=== PATIENT | female | born 1975 | race Asian ===

== ENCOUNTER 2022-05-09 15:36 | Outpatient (CLI) | payer BC | END 2022-05-09 15:37 | disposition home or self-care (01) | LOC: CSHMAMMO 15:36 | PROVIDERS: ATTEND Internal Medicine | DX: Z12.31 Encounter for screening mammogram for malignant neoplasm of breast (principal); Z80.3 Family history of malignant neoplasm of breast | CPT/HCPCS: 77063; 77067 ==

== ENCOUNTER 2024-06-29 15:41 | Outpatient (CLI) | payer BC | END 2024-06-29 15:42 | disposition home or self-care (01) | LOC: CSHULT 15:41 | PROVIDERS: ATTEND Internal Medicine | DX: R53.1 Weakness (principal) | CPT/HCPCS: 93880 ==